=== PATIENT | female | born 1955 | race Caucasian/White ===

== ENCOUNTER 2016-09-07 08:46 | Day surgery (SDC) | payer BC ==
[~2016-09-07] VITALS: Ht 175.3 cm; Wt 97.3 kg
[2016-09-07] VITALS (8 sets, daily range): BP systolic 133–180; BP diastolic 72–82; PULSE 60–67; RESP 14–21; TEMP 97.5–98.2; O2SAT 94–98; Ht 175.3 cm; Wt 97.3 kg
[~2016-09-07 08:46] MED LIST: CLINDAMYCIN 600mg IVPB 50 ML IV ONE; LIDOCAINE 1% (10mg/ml) 2ml SDV INJ ONE; LR 1,000 ML IV PRN; METF500T4 PO; NEBI10TA PO; OMEP20CA10 PO; ROSU20TA23 PO
--- OUTSIDE RECORDS SUMMARY | 2016-09-07 08:49 | XMS REPORT | Continuity of Care Document ---
Author Author [facility] Address Unknown Phone Unavailable Allergies Active Description Code Type Severity Reaction Onset Reported/Identified Relationship to Patient Clinical Status Yes Penicillins [id number] Drug Allergy Unknown N/A 04/01/2016 Medications Problems Date Dx Coded Attending Type Code Diagnosis Diagnosed By 05/12/2015 LAURIE ROBERTS MD, Ot Z12.31 11/06/2015 LAURIE ROBERTS MD, Ot E11.65 TYPE 2 DIABETES MELLITUS WITH HYPERGLYCE 11/18/2015 LAURIE ROBERTS MD Ot E11.65 TYPE 2 DIABETES MELLITUS WITH HYPERGLYCE 11/18/2015 LAURIE ROBERTS MD, Ot E11.65 TYPE 2 DIABETES MELLITUS WITH HYPERGLYCE 01/26/2016 LAURIE ROBERTS MD, Ot E11.65 TYPE 2 DIABETES MELLITUS WITH HYPERGLYCE 01/27/2016 LAURIE ROBERTS MD Ot E11.65 TYPE 2 DIABETES MELLITUS WITH HYPERGLYCE 02/08/2016 LAURIE ROBERTS MD, Ot E11.65 TYPE 2 DIABETES MELLITUS WITH HYPERGLYCE 02/10/2016 LAURIE ROBERTS MD, Ot E11.65 TYPE 2 DIABETES MELLITUS WITH HYPERGLYCE 03/22/2016 Ot V76.12 OTH SCREEN MAMMO-MALIGN NEOPLASM OF [place] 03/22/2016 LAURIE ROBERTS MD Ot V16.3 FAMILY HX-BREAST MALIG 03/22/2016 LAURIE ROBERTS MD, Ot V76.11 SCRN MAMMO-HIGH RISK PT, MALIGNANT NEOPL 03/22/2016 LAURIE ROBERTS MD Ot 729.82 CRAMP IN LIMB 03/22/2016 LAURIE ROBERTS MD Ot 611.89 OTHER SPECIFIED DISORDERS OF BREAST 03/22/2016 LAURIE ROBERTS MD Ot 793.82 INCONCLUSIVE MAMMOGRAM 03/22/2016 LAURIE ROBERTS MD, Ot V76.12 OTH SCREEN MAMMO-MALIGN NEOPLASM OF [place] 03/22/2016 LAURIE ROBERTS MD Ot Z12.31 ENCNTR SCREEN MAMMOGRAM FOR MALIGNANT NE 03/22/2016 ALEJANDRA MD, LAURIE L Ot E11.65 TYPE 2 DIABETES MELLITUS WITH HYPERGLYCE 03/30/2016 All Gomez Ot M25.561 PAIN IN RIGHT KNEE 04/01/2016 LAURIE ROBERTS MD, Ot E11.65 TYPE 2 DIABETES MELLITUS WITH HYPERGLYCE 04/01/2016 HERBERT ARECHIGA MD P Ot S81.812A LACERATION WITHOUT FOREIGN BODY, LEFT LO 04/01/2016 HERBERT ARECHIGA MD P Ot W22.03XA WALKED INTO FURNITURE, INITIAL ENCOUNTER 04/01/2016 HERBERT ARECHIGA MD P Ot Y92.[address] IN [facility] NON-INSTITUT ( PRIVATE 04/05/2016 HERBERT ARECHIGA MD P Ot S81.812A LACERATION WITHOUT FOREIGN BODY, LEFT LO 04/05/2016 HERBERT ARECHIGA MD P Ot W22.03XA WALKED INTO FURNITURE, INITIAL ENCOUNTER 04/05/2016 HERBERT ARECHIGA MD P Ot Y92.[address] IN [facility] NON-INSTIT[facility] ( PRIVATE 04/05/2016 HERBERT ARECHIGA MD P Ot S81.812A LACERATION WITHOUT FOREIGN BODY, LEFT LO 04/05/2016 HERBERT ARECHIGA MD P Ot W22.03XA WALKED INTO FURNITURE, INITIAL ENCOUNTER 04/05/2016 HERBERT ARECHIGA MD P Ot Y92.[address] IN [facility] NON-INSTIT[facility] ( PRIVATE 05/09/2016 LAURIE ROBERTS MD Ot Z12.31 ENCNTR SCREEN MAMMOGRAM FOR MALIGNANT NE 05/18/2016 LAURIE ROBERTS MD, Ot Z12.31 ENCNTR SCREEN MAMMOGRAM FOR MALIGNANT NE 08/31/2016 LAURIE ROBERTS MD Ot R01.1 CARDIAC MURMUR, UNSPECIFIED Procedures Results Encounters ACCT No. Visit Date/Time Discharge Status Pt. Type Provider Facility Loc./Unit Complaint [id number] 04/01/2016 09:44:00 2015 10:30:00 DIS Emergency GENI DOWNS, [facility] ED [id number] 11/18/2015 10:00:00 2015 00:01:00 DIS Outpatient ALEJANDRA DOWNS, LAURIE [facility] DT TYPE 2 DIABETES E11.65 [id number] 01/01/2014 07:22:00 2013 23:59:59 CLS Outpatient ALEJANDRA DOWNS, [facility] RAD SCREEING V7612 [id number] 12/25/2012 10:56:00 2012 23:59:59 CLS Outpatient ALEJANDRA DOWNS, [facility] RAD Asymmetry Rt Breast [id number] 12/19/2012 13:49:00 2012 23:59:59 CLS Outpatient ALEJANDRA DOWNS, [facility] RAD BILAT LEG CRAMPS WITH COLD EXTREMITIES [id number] 12/13/2012 07:23:00 2012 23:59:59 CLS Outpatient ALEJANDRA DOWNS, [facility] RAD SCREENING V7612 [id number] 09/02/2016 13:51:00 PEN Preadmit [facility] RT EKG [id number] 08/23/2016 14:11:00 ACT Outpatient ALEJANDRA DOWNS, [facility] RAD SYSTOLIC MURMUR R01.1 [id number] 05/03/2016 07:56:00 ACT Outpatient ALEJANDRA DOWNS, [facility] RAD MAMMO SCREENING - Z12.31 [id number] 03/22/2016 12:04:00 ACT Outpatient All Gomez [facility] RAD R KNEE PAIN [id number] 01/27/2016 09:00:00 PEN Preadmit ALEJANDRA DOWNS, [facility] DT TYPE 2 DIABETES E11.65 [id number] 04/28/2015 13:26:00 ACT Outpatient ALEJANDRA DOWNS, [facility] RAD MAMMO SCREENING - Z12.31 [id number] 12/12/2011 08:26:00 Document Registration
--- OUTSIDE RECORDS SUMMARY | 2016-09-07 08:49 | XMS REPORT | Summary of Care ---
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 * Started 21-Dec-2009 ActiveLidocaine 5 % External Ointment Apply to area 45 min prior to laser treatment * Quantity: 35.44 GM Refills: 5 * Started 27-Aug-2013 Active Allergies and Adverse Reactions Name Dates Details Penicillins Status: Active Past Medical History Name Dates Details Skin Cancer (V10.83) Status: Resolved Inflamed seborrheic keratosis (702.11, L82.0) Status: Resolved Procedures Procedure Dates Details Neck Surgery Procedures not documented Immunization Name Dates Details Immunizations not documented Social History Name Dates Details Never smoker Smoking Status* Never smoker Vital Signs Date Test Result Details No Known Vitals to report Results Date Description Value Details Results not documented Plan of Care Instructions* Instructions not documented Planned Observations* Name Dates Details Planned Goals not documented Goal Planned Encounters* Appointment; Provider: Ronni Craig On 01-Sep-2014 16:00 * Appointment; Provider: Sariah Lauren On 04-Oct-2013 08:30 * Appointment; Provider: Sariah Lauren On 04-Oct-2013 08:30 * Appointment; Provider: Nickolas Stratton On 02-Oct-2013 15:15 * Appointment; Provider: Nickolas Stratton On 11:00 Instructions * No Known Instructions Encounters Appointment; Sariah Lauren Encounter Diagnosis: Problem not documented On 27-Aug-2013 15:00 Appointment; Gerardo Bernard Encounter Diagnosis: Problem not documented On 19-Jun-2013 08:45 Appointment; Nickolas Stratton Encounter Diagnosis: Problem not documented On 09-Jan-2013 13:00 Appointment; Sariah Lauren Encounter Diagnosis: Problem not documented On 13-Aug-2012 16:15
--- OUTSIDE RECORDS SUMMARY | 2016-09-07 08:49 | XMS REPORT | Referral Summary ---
Author Author [facility] Organization [facility] Address Unknown Phone Unavailable Care Team Providers Care Medication Reconciliation Technician Name Role Phone ArmidaGrey Primary Care Physician [phone] Encounter [facility] Date(s): 10/14/14 - 10/14/14 [facility] [address], [place] [address] Final: PREOPERATIVE EXAMINATION, UNSPECIFIED Final: OSTEOARTHROSIS, LOCALIZED, NOT SPECIFIED WHETHER PRIMARY OR SECONDARY, INVOLVING LOWER LEG Discharge Disposition: 01-Home or Self Care Attending Physician: Jai Rose II, MD Vital Signs No data available for this section Problem List Condition Effective Dates Status Health Status Informant Acute Active pain(Confirmed) At risk for activity Active intolerance(Confirme d)1 At risk for Active infection(Confirmed) 2 Hyperlipemia(Confirm Active patient ed) HTN Active patient (hypertension)(Confi rmed) Impaired skin Active integrity(Confirmed) 3 Obesity(Confirmed) Active patient 1Problem added automatically by system based on initiation of At Risk for Activity Intolerance Plan of Care 2Problem added automatically by system based on initiation of At Risk for Infection in Nutrition Plan of Care 3Problem added automatically by system based on initiation of Impaired Skin Integrity Plan of Care Allergies, Adverse Reactions, Alerts Substance Reaction Severity Status penicillin unknown Active Medications acetaminophen 325 mg oral tablet 325 mg 1 tabs, Oral, q4hr, Pain Mild (1-3), 0 Refill(s) Start Date: 10/23/14 Status: Ordered aspirin 81 mg oral delayed release tablet 81 mg 1 tabs, Oral, BID, 0 Refill(s) Start Date: 10/23/14 Status: Ordered atorvastatin 80 mg oral tablet 80 mg 1 tabs, Oral, Bedtime (once a day), 0 Refill(s) Start Date: 10/23/14 Status: Ordered Benicar 20 mg, Oral, Daily, 0 Refill(s) Start Date: 10/14/14 Status: Ordered bisoprolol-hydrochlorothiazide 2.5 mg-6.25 mg oral tablet 1 tabs, Oral, Daily, 0 Refill(s) Start Date: 10/22/14 Status: Ordered Crestor 20 mg, Oral, Daily, 0 Refill(s) Start Date: 10/14/14 Status: Ordered hydrochlorothiazide 25 mg, Oral, Daily Start Date: 10/14/14 Status: Ordered HYDROcodone-acetaminophen 10 mg-325 mg oral tablet 2 tabs, Oral, q4hr, Pain Severe (7-10), 0 Refill(s) Start Date: 10/23/14 Status: Ordered omeprazole 20 mg, Oral, Daily, 0 Refill(s) Start Date: 10/14/14 Status: Ordered Prempro 0.625-2.5mg, Oral, Daily Start Date: 10/14/14 Status: Ordered traMADol 50 mg oral tablet 50 mg 1 tabs, Oral, q4hr, Pain Mild (1-3), 0 Refill(s) Start Date: 10/23/14 Status: Ordered venlafaxine 37.5 mg, Oral, Daily Start Date: 10/14/14 Status: Ordered Results No data available for this section Immunizations No data available for this section Procedures Procedure Date Related Diagnosis Body Site Arthroplasty Knee Total Replacement (Left)1 10/21/14 1auto-populated from documented surgical case Social History Social History Type Response Smoking Status Never smoker Assessment and Plan No data available for this section
--- OUTSIDE RECORDS SUMMARY | 2016-09-07 08:49 | XMS REPORT | Summary of Care ---
Author Author Rakesh Zarate Organization Unknown Address [address], [place] [id number] Phone Unavailable Care Team Providers Care Geophysical Drafter Name Role Phone Rakesh Zarate Unavailable Unavailable Yahaira Prakash M.D. 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 Alberto Prakash M.D.* Started 21-Dec-2009 ActiveAzithromycin 250 MG Oral Tablet TAKE 2 TABLETS ON DAY 1 THEN TAKE 1 TABLET A DAY FOR 4 DAYS. * Quantity: 2 Refills: 0 Rakesh Prakash* Started 28-Apr-2014 Active6 Tablet Disp Pack MethylPREDNISolone Acetate 80 MG/ML Injection Suspension 1 ml given in office * Quantity: 1 Refills: 0 Rakesh Prakash* Started 28-Apr-2014 Admin RequestedLidocaine 5 % External Ointment Apply to area 45 min prior to laser treatment * Quantity: 35.44 Refills: 5 Sariah Lauren M.D.* Started 27-Aug-2013 Active Allergies and Adverse Reactions Name Dates Details Penicillins Status: Active Past Medical History Name Dates Details History of Inflamed seborrheic keratosis (702.11, L82.0) Status: Resolved History of Skin Cancer (V10.83) Status: Resolved Procedures Procedure Dates Details History of Neck Surgery Procedures not documented Immunization Name Dates Details Immunizations not documented Social History Name Dates Details Smoking Status* Never smoker Vital Signs Date Test Result Details 28-Apr-2014 09:52 BP Systolic 112 mm[Hg] Status: BP Diastolic 74 mm[Hg] Status: Heart Rate 111 /min Status: Temperature 99.6 f Status: Weight 224 lb Status: O2 SAT 97 % Status: Results Date Description Value Details 22-Apr-2014 16:41 ULTRASOUND ELVS Comments: Exam Date: 12: 19Dictation Date: 16:41 XS ELVS (Better) 05-May-2014 16:19 ULTRASOUND ELVS RECHECK LEFT Comments: Exam Date: 14:48Dictation Date: 16:19 XS ELVS RECHECK LEFT (Better) 20-May-2014 14:24 ULTRASOUND ELVS Comments: Exam Date: 12: 18Dictation Date: 14:24 XS ELVS (Better) 13:56 ULTRASOUND ELVS RECHECK LEFT Comments: Exam Date: 12: 17Dictation Date: 13:56 XS ELVS RECHECK LEFT (Better) Plan of Care Planned Observations* Name Dates Details Planned Goals not documented Goal Planned Encounters* Appointment; Provider: Ronni Craig On 01-Sep-2014 16:00 * Appointment; Provider: Nickolas Stratton On 11:00 Instructions * Instructions not documented Encounters Appointment; Rakesh Prakash Encounter Diagnosis: Problem not documented On 28-Apr-2014 09:50 Appointment; Sariah Lauren Encounter Diagnosis: Problem not documented On 14-Mar-2014 16:00 Appointment; Sariah Lauren Encounter Diagnosis: Problem not documented On 07-Feb-2014 16:00 Appointment; Sariah Lauren Encounter Diagnosis: Problem not documented On 07-Feb-2014 16:00 Appointment; Sariah Lauren Encounter Diagnosis: Problem not documented On 03-Jan-2014 16:00 Appointment; Sariah Lauren Encounter Diagnosis: Problem not documented On 03-Jan-2014 16:00 Appointment; Sariah Lauren Encounter Diagnosis: Problem not documented On 08:30 Appointment; Sariah Lauren Encounter Diagnosis: Problem not documented On 08:30 Appointment; Sariah Lauren Encounter Diagnosis: Problem not documented On 04-Oct-2013 08:30 Appointment; Sariah Lauren Encounter Diagnosis: Problem not documented On 04-Oct-2013 08:30 Appointment; Nickolas Stratton Encounter Diagnosis: Problem not documented On 02-Oct-2013 15:15 Appointment; Sariah Lauren Encounter Diagnosis: Problem not documented On 27-Aug-2013 15:00 Appointment; Gerardo Bernard Encounter Diagnosis: Problem not documented On 19-Jun-2013 08:45 Appointment; Nickolas Stratton Encounter Diagnosis: Problem not documented On 09-Jan-2013 13:00 Appointment; Sariah Lauren Encounter Diagnosis: Problem not documented On 13-Aug-2012 16:15
--- OUTSIDE RECORDS SUMMARY | 2016-09-07 08:50 | XMS REPORT | Summary of Care ---
Author Author Nette Nugent Unknown Address [address], [place] [id number] Phone Unavailable Care Team Providers Care Sap Fico Architect Name Role Phone Rakesh Zarate Unavailable Unavailable Olinda Nieto, Yahaira Unavailable Unavailable Xin Nieto, Grey Unavailable Unavailable Juan Huffman PP Unavailable Unavailable Unavailable Functional Status Functional Status [...] Upper respiratory infection (465.9, J06.9) Status: Active Actinic keratosis (702.0, L57.0) Status: Active Seborrheic keratosis (702.19, L82.1) Status: Active Lentigo (709.09, L81.4) Status: Active Inflamed seborrheic keratosis (702.11, L82.0) Status: Active History of skin cancer (V10.83, Z85.828) Status: Active Medications Name Dates Details Benicar 20 MG Oral Tablet TAKE 1 TABLET DAILY. Alberto Prakash M.D.* Started 21-Dec-2009 ActiveLidocaine 5 % External Ointment Apply to area 45 min prior to laser treatment * Quantity: 35.44 Refills: 5 Sariah Lauren M.D.* Started 27-Aug-2013 ActiveAzithromycin 250 MG Oral Tablet TAKE 2 TABLETS ON DAY 1 THEN TAKE 1 TABLET A DAY FOR 4 DAYS. * Quantity: 2 Refills: 0 Rakesh Prakash* Started 28-Apr-2014 Active6 Tablet Disp Pack MethylPREDNISolone Acetate 80 MG/ML Injection Suspension 1 ml given in office * Quantity: 1 Refills: 0 Rakesh Prakash* Started 28-Apr-2014 Admin Requested Allergies and Adverse Reactions Name Dates Details Penicillins Status: Active Past Medical History Name Dates Details History of Skin Cancer (V10.83) Status: Resolved Procedures Procedure Dates Details History of Neck Surgery Procedures not documented Immunization Name Dates Details Immunizations not documented Social History Name Dates Details Smoking Status* Never smoker Vital Signs Date Test Result Details No Known Vitals to report Results Date Description Value Details Results not documented Plan of Care Planned Observations* Name Dates Details Planned Goals not documented Goal Planned Encounters* Appointment; Provider: Nette Be On 14:45 * Appointment; Provider: Nickolas Stratton On 11:00 Instructions * Instructions not documented Encounters Appointment; Nette Be Encounter Diagnosis: Problem not documented On 14:45 Appointment; Ronni Craig Encounter Diagnosis: Problem not documented On 04-Feb-2015 09:15 Appointment; Ronni Craig Encounter Diagnosis: Problem not documented On 01-Sep-2014 16:00 Appointment; Rakesh Prakash Encounter Diagnosis: Problem not [...]
--- OUTSIDE RECORDS SUMMARY | 2016-09-07 08:50 | XMS REPORT | Referral Summary ---
Author Author [facility] Organization [facility] Address Unknown Phone Unavailable Care Team Providers Care Director Day Care Center Name Role Phone Armida Grey Primary Care Physician [phone] Encounter [facility] [id number] Date(s): 05/18/15 - 05/18/15 [facility] [address] [place] [address] Discharge Disposition: 01-Home or Self Care Attending [...] Daily Start Date: 10/14/14 Status: Ordered Results Microbiology Reports TEST: Fluid Culture and Smear STATUS: Order in Progress BODY SITE: SOURCE: Synovial Fluid COLLECTED DATE/TIME: 05/18/15 11:30 AM Gram Smear Few (1-5/OIF) white blood cells Innumerable (>50/OIF) red blood cells No microorganisms observed Immunizations No data available for this section Procedures Procedure Date Related Diagnosis Body Site Image-guided fluid collection drainage by 05/18/15 catheter (eg, abscess, hematoma, seroma, lymphocele, cyst); visceral (eg, kidney, liver, spleen, lung/mediastinum), percutaneous Puncture aspiration of abscess, hematoma, 05/18/15 bulla, or cyst Arthroplasty Knee Total Replacement (Left)1 10/21/14 1auto-populated from documented surgical case Social History Social History Type Response Smoking Status Never smoker Assessment and Plan No data available for this section
--- OUTSIDE RECORDS SUMMARY | 2016-09-07 08:50 | XMS REPORT | Summary of Care ---
Author Author Nette Nugent Unknown Address [address], [place] [id number] Phone Unavailable Care Team Providers Care Hotel Attendant Name Role Phone Rakesh Zarate Unavailable Unavailable [...]
--- OUTSIDE RECORDS SUMMARY | 2016-09-07 08:50 | XMS REPORT | Referral Summary ---
Author Author [facility] Organization [facility] Address Unknown Phone Unavailable Care Team Providers Care Lease Analyst Name Role Phone ArmidaGrey Primary Care Physician [phone] Encounter [facility] [id number] Date(s): 10/21/14 - 10/23/14 [facility] [address] [place] [address] QG [phone] Final: OSTEOARTHROSIS, LOCALIZED, NOT SPECIFIED WHETHER PRIMARY OR SECONDARY, INVOLVING LOWER LEG Final: HYPOSMOLALITY AND/OR HYPONATREMIA Final: ACUTE POSTHEMORRHAGIC ANEMIA Final: DEPRESSIVE DISORDER, NOT ELSEWHERE CLASSIFIED Final: OTHER AND UNSPECIFIED HYPERLIPIDEMIA Final: UNSPECIFIED ESSENTIAL HYPERTENSION Final: ESOPHAGEAL REFLUX Final: OBESITY, UNSPECIFIED Final: Other abnormal glucose Final: Body Mass Index 33.0-33.9, adult Discharge Disposition: 01-Home or Self Care Attending Physician: Jai Rose II, MD Admitting Physician: Jai Rose II, MD Vital Signs Most recent to 1 oldest [Reference Range]: Temperature Oral 36.6 degC [35.8-37.3 degC] (10/23/14 11:00 AM) Temperature Tympanic 36.4 degC [36.6-38.1 degC] *LOW* (10/21/14 8:03 AM) Temperature Skin 37.2 degC [36-37 degC] *HI* (10/21/14 11:30 AM) Peripheral Pulse 91 bpm Rate [60-100 bpm] (10/23/14 11:00 AM) Heart Rate Monitored 65 bpm [60-100 bpm] (10/21/14 11:45 AM) Respiratory Rate 18 br/min [14-20 br/min] (10/23/14 11:00 AM) Blood Pressure 122/62 mmHg [90-140/60-90 mmHg] (10/23/14 11:00 AM) Mean Arterial 119 mmHg Pressure, Cuff (10/21/14 11:45 AM) SpO2 93 % (10/23/14 11:00 AM) Problem List Condition Effective Dates Status Health [...] Daily Start Date: 10/14/14 Status: Ordered Results Hematology Most recent to 1 oldest [Reference Range]: WBC [4.8-10.8 7.7 10*3/uL 10*3/uL] (10/23/14 5:29 AM) RBC [4.00-5.20 3.23 10*6/uL 10*6/uL] *LOW* (10/23/14 5:29 AM) Hgb [12.0-16.0 9.7 gm/dL gm/dL] *LOW* (10/23/14 5:29 AM) Hct [37.0-47.0 %] 30.0 % *LOW* (10/23/14 5:29 AM) MCV [82.0-99.0 fL] 92.9 fL (10/23/14 5:29 AM) MCH [27.0-32.0 pg] 30.0 pg (10/23/14 5:29 AM) MCHC [32.0-36.0 32.3 gm/dL gm/dL] (10/23/14 5:29 AM) RDW [11.5-14.5 %] 13.9 % (10/23/14 5:29 AM) Platelet [150-400 218 10*3/uL 10*3/uL] (10/23/14 5:29 AM) MPV [9.4-12.4 fL] 11.0 fL (10/23/14 5:29 AM) Chemistry Most recent to 1 oldest [Reference Range]: Sodium Lvl [136-144 134 mEq/L mEq/L] *LOW* (10/23/14 5:29 AM) Potassium Lvl 3.7 mEq/L [3.6-5.1 mEq/L] (10/23/14 5:29 AM) Chloride [99-109 99 mEq/L mEq/L] (10/23/14 5:29 AM) CO2 [22-32 mEq/L] 29 mEq/L (10/23/14 5:29 AM) AGAP [3-20] 6 (6/18/15 5:29 AM) BUN [4-20 mg/dL] 10 mg/dL (10/23/14 5:29 AM) Glucose Lvl [70-100 152 mg/dL mg/dL] *HI* (10/23/14 5:29 AM) Creatinine Lvl 0.80 mg/dL [0.44-1.03 mg/dL] (10/23/14 5:29 AM) eGFR [>60] >60 1 (10/23/14 5:29 AM) Calcium Lvl 8.8 mg/dL [8.6-10.0 mg/dL] (10/23/14 5:29 AM) Blood Glucose, 133 mg/dL Capillary [70-100 *HI* mg/dL] (10/23/14 11:31 AM) Hgb A1c [4.1-5.6 %] 6.4 % *HI* (10/23/14 5:29 AM) eAvg Glucose 137.0 mg/dL (10/23/14 5:29 AM) 1Result Comment: Multiply eGFR results by 1.21 for race. Immunizations No data available for this section Procedures Procedure Date Related Diagnosis Body Site Arthroplasty Knee Total Replacement (Left)1 10/21/14 1auto-populated from documented surgical case Social History Social History Type Response Smoking Status Never smoker Assessment and Plan No data available for this section
--- OUTSIDE RECORDS SUMMARY | 2016-09-07 08:50 | XMS REPORT | Continuity of Care Document ---
Author Author [facility] Address Unknown Phone Unavailable Care Team Providers Care Community Resource Officer Name Role Phone LAURIE ROBERTS MD Primary Care Physician [phone] Insurance Providers Payer Name Policy Number Subscriber Name Relationship [facility] [id number] Mila Michaud 18 Self / Same As Patient Advance Directives Directive Response Recorded Date/Time Advanced Directives Yes 04/01/16 9:47am Type Durable Power of Park Activities Coordinator 04/01/16 9:47am Chief Complaint and Reason for Visit Chief Complaint Laceration Reason for Visit Laceration Problems Active Problems Medical Problem Onset Date Status Laceration Unknown Acute Medications Current Home Medications Medication Dose Units Route Directions Days/Qty Instructions Start Date Rosuvastatin Calcium 20 Mg 20 ORAL Daily 30 04/01/16 Sulfamethoxazole/Trimethoprim 1 Each 1 Tab ORAL Twice A Day 10 Social History Query Response Start Date Stop Date Smoking Status Never smoker Hospital Discharge Instructions No hospital discharge instructions. Plan of Care Discharge Date 04/01/16 10:30am Disposition 01 HOME OR SELF-CARE Condition at Discharge Stable Instructions/Education Provided Laceration (ED) Prescriptions See Medication Section Referrals LAURIE ROBERTS MD - Additional Instructions/Education ED INGRID if any sign of infection. Routine wound care. Keflex as directed. Some of your test results may not be complete prior to your leaving the Emergency Department. The Emergency Department is not authorized to give test results over the phone. Please contact the doctor's office listed in this packet of information for your final results. Follow up with your primary care physician or return to the Emergency Department for worsening or worrisome symptoms. * Emergency Department phone number: [phone], x [phone]* MEDICAL RECORD If you need copies of your X-rays, call [phone]. If you need copies of your medical record, including lab results, a signed authorization for release of records will be required. A telephone call for release of Health Information is not allowed. BILLING Billing can sometimes be confusing and frustrating. To help avoid confusion in the future, please take a moment to acquaint yourself with the billing parties for services. SERVICE BILLING [facility] Emergency Room Services [facility] Physician Services [facility] X-rays [place] [facility] Patients will receive bills for services from the appropriate provider. If you have any questions about your [facility] bill, our staff will be happy to assist you. Please call [phone], and ask for the billing department. THANK YOU for choosing [facility] as your emergency care provider! Care Plan and Goals ~~Discharge Care Plan~~ Problem: Laceration repaired Goal: Wound is closed with edges lined up, and will heal without redness, drainage or signs of infection. Instructions: Keep wound clean and dry. Apply antibiotic ointment as directed. Follow physician discharge instructions. Keep wound covered if working in an unclean environment. Wear gloves if working with food in a work environment. Functional Status No functional status results. Allergies, Adverse Reactions, Alerts Allergen Type Severity Reaction Status Last Updated Penicillin Allergy Unknown Active 04/01/16 Immunizations Name Given Type Status Tdap 04/01/16 Administered Completed Vital Signs Acute Vital Signs Vital Response Date/Time Temperature (Fahrenheit) 98.1 04/01/2016 9:47am Pulse 87 bpm 04/01/2016 9:47am Respirations 16 04/01/2016 9:47am Height 5 ft 9 in Weight 202 lb Body Mass Index 29.0 kg/m^2 Results No known relevant diagnostic tests, laboratory data and/or discharge summary. Procedures Procedure Status Date Provider(s) MRI JNT OF LWR SAWYER W/O DYE Completed 03/22/16 Encounters Encounter Location Arrival/Admit Date Discharge/Depart Date Attending Provider Departed Emergency Room [facility] 04/01/16 9:44am 04/01/16 10:30am HERBERT ARECHIGA MD Registered Clinic [facility] 03/22/16 12:04pm All Gomez Recent Diagnosis
[2016-09-07] MEDS ORDERED: MAGN400T6 PO (09:12)
[2016-09-07] MEDS ORDERED: VIT B12 AEROSOL (09:13)
[2016-09-07] MEDS ORDERED: POTASSIUM (09:16)
[2016-09-07 09:38] LABS: ANION GAP 11 MEQ/L (5-15); BUN/CREATININE RATIO 21 RATIO (6-26); CALCIUM 9.2 MG/DL (8.4-10.2); CHLORIDE 108 MEQ/L (98-107); CO2 - CARBON DIOXIDE 28 MEQ/L (22-30); CREATININE 0.8 MG/DL (0.7-1.2); GLOMERULAR FILTRATION RATE 73; GLUCOSE 119 MG/DL (65-110); POTASSIUM 4.3 MEQ/L (3.6-5); SODIUM 147 MEQ/L (134-144)
[2016-09-07] MEDS ORDERED: BUPIVACAINE 0.25% (2.5mg/ml) INJ 30ml SDV ONE (10:50)
[2016-09-07] MEDS ORDERED: MEPERIDINE 100 mg/ml VIAL ONE (10:50)
[2016-09-07] MEDS ORDERED: PROPOFOL 500mg 100 ML IV ONE (11:09)
--- NOTE | 2016-09-07 11:29 | ANESPREOP ---
Anesthesia Record Date and Time DATE: 09/07/16 TIME: 11:28 Pre-Op Diagnosis Meniscus tear Proposed Surgical Procedure R. KNEE ARTHROSCOPY/PMM/BOONE NPO since: Midnight Allergies: Coded Allergies: Penicillins (Verified Allergy, Unknown, 09/07/16) Ht/Wt/BMI Height: 5 ' 9.00 " Weight: 97.300 kg BMI: 31.7 kg/m2 Vital Signs Date Time Temp Pulse Resp B/P Pulse Ox O2 Delivery O2 Flow Rate FiO2 09/07/16 08:59 98.2 67 16 165/78 97 Room Air Medications Inpatient Medications Current Medications Medications (Trade) Dose Ordered Sig/Louisa Start Time Stop Time Status Last Admin Dose Admin Lactated Ringer's (Lactated Ringers) 1,000 ml @ 50 mls/hr Q20H PRN 09/07/16 07:00 09/07/16 10:02 50 MLS/HR Magnesium Oxide (Magnesium Oxide) 400 Mg Tablet, 1 TAB PO DAILY, (Reported) Last Taken: on 09/06/16 2200 Metformin HCl (Metformin HCl) 500 Mg Tablet, 2 TAB PO BID, (Reported) Last Taken: on 09/06/16 2100 Nebivolol HCl (Bystolic) 10 Mg Tablet, 1 TAB PO DAILY, (Reported) Last Taken: on 09/07/16 0530 Omeprazole (Omeprazole) 20 Mg Capsule.dr, 1 TAB PO DAILY, (Reported) Last Taken: on 09/06/16 0530 Rosuvastatin Calcium (Rosuvastatin Calcium) 20 Mg Tablet, 1 TAB PO DAILY, (Reported) Last Taken: on 09/06/16 2200 [Potassium] , DAILY, (Reported) Last Taken: on 09/06/16 0530 [Vit B12] , AEROSOL DAILY, (Reported) Last Taken: on 09/06/16 0530 Currently on Beta Sultana: Yes Beta Sultana Last Taken: 09/07/16 0530 Medical/Surgical History Anesthesia PMH: Reports: *Diabetes (TYPE 2 PER H&P), *Hypertension (CONTROLLED WITH MEDS), Anesthesia Reactions (NO AIRWAY ISSUES, N&V), Cancer (SQUAMOUS CELL RIGHT SIDE NECK), Reflux, Thyroid Disease, Valvular Disease (Dr Wilson), Denies : Arthritis, Clotting Problems, Glaucoma, Malignant Hyperthermia, Sleep Apnea Smoking Status: Never smoker Has pt. smoked today?: No Use Chewing Tobacco?: No Second Hand Exposure: No Substance Use Type: does not use Alcohol Intake: none HX of Last Menstrual Period: AGE 50 Past Surgical History Orthopedic Surgeries: Yes - TKR-LEFT, ARTHROSCOPY LEFT KNEE, ELBOW& FOREARM REPAIR Abdominal Surgeries: Genitourinary Surgeries: Cardiac Surgeries: Endocrine Surgeries: Reproductive Surgeries: Yes - D&C Neurological Surgeries: Ear Surgeries: Nose Surgeries: Throat Surgeries: Other Surgeries: Yes - DETATCHED RETNIA Anesthesia Adverse Reactions: FOUND none Family Hx of Anesthesia Advers: none Hx of Motion Sickness: No Pertinent Findings Laboratory Tests 09/07/16 09:18 EKG Rhythm: Sinus Rhythm Physical Exam Respiratory: Lungs clear Cardiovascular: FOUND Regular rate, rhythm Airway Assessment Mallampati Score: II TMD: 3 Fingerbreadths Neck Extension: Good Overall Assessment: No Airway Concerns ASA: 2 Plan Anesthesia Plan: TIVA, LMA Discussion Discussed risks/options/alternatives of anesthesia and questions answered. Patient consents. Nursing pain assessment noted. Present: Family Member Attestation Statement Prior to the delivery of any anesthetic medication, I examined the patient, developed the plan, obtained the patient's consent and discussed the risk and benefits of the procedure with the patient/guardian. GIANFRANCO CUEVAS WALLPAPER INSPECTOR September 07, 2016 11:29
[2016-09-07] MEDS ORDERED: FENTANYL 100mcg/2ml INJECTION ONE (11:36)
[2016-09-07] MEDS ORDERED: ONDANSETRON 4mg/2ml INJECTION ONE (11:54)
[2016-09-07] MEDS ORDERED: KETOROLAC 30mg/ml INJECTION ONE (11:55)
[2016-09-07] MEDS ORDERED: DEXAMETHASONE 4mg/ml - 1ml INJECTION ONE (11:55)
[2016-09-07] MEDS ORDERED: PROPOFOL 500mg 50 ML IV ONE (11:55)
[2016-09-07] MEDS ORDERED: HYDROMORPHONE 2mg/ml INJECTION IV PRN (12:15)
[2016-09-07] MEDS ORDERED: METOCLOPRAMIDE 10mg/2ml INJECTION IV PRN (12:15)
[2016-09-07] MEDS ORDERED: ONDANSETRON 4mg/2ml INJECTION IV PRN (12:15)
[2016-09-07] MEDS ORDERED: HYDR-4246 PO (12:23)
[2016-09-07] MEDS ORDERED: MELO7.5T12 PO (12:23)
[2016-09-07] MEDS ORDERED: ONDA4TAB4 PO (12:23)
--- NOTE | 2016-09-07 12:25 | PDPROCED ---
Immediate Operative Note DATE: 09/07/16 TIME: 12:24 Preop Diagnosis: RIGHT KNEE MMT, PRIMARY OA Postop Diagnosis: Right knee medial and lateral meniscal tear, primary OA Surgical Procedures: R Knee Arthroscopy (PMM, PLM, chondroplasty MFC and patella, limited synovectomy) Surgeon: [facility] Coordinator: BARBARA Gonsalez Anesthesia: General Complications: none Estimated Blood Loss see anesthesia JANN ACUÑA September 07, 2016 12:25
--- NOTE | 2016-09-07 12:30 | ANESPO ---
Post-Op Note Date 09/07/16 Time: 12:29 Status Pt Participated in Evaluation: Pt participated in person Vital Signs Date Time Temp Pulse Resp B/P Pulse Ox O2 Delivery O2 Flow Rate FiO2 09/07/16 08:59 98.2 67 16 165/78 97 Room Air Respiratory Function: Airway patent Cardiovascular Function: Regular pulse Telemetry Pattern: SR Mental Status: Alert/oriented Pain Level Intensity: 0 Hydration: IV infusing Complications during Recovery None apparent Follow-Up Instructions Instructions Per Surgeon GIANFRANCO CUEVAS CRNA September 07, 2016 12:30
[2016-09-07] MEDS ORDERED: HYDROCODONE/APAP 5 mg/325 mg TABLET PO PRN (13:00)
--- NOTE | 2016-09-07 19:33 | OPNOTEF ---
DATE OF SURGERY 09/07/2016 PREOPERATIVE DIAGNOSES 1. Right knee posterior horn medial meniscus tear with mechanical symptoms. 2. Right knee medial and patellofemoral compartment osteoarthritis. POSTOPERATIVE DIAGNOSES 1. Right knee posterior horn medial meniscus tear with displaced fragment into intercondylar notch and medial gutter. 2. 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 3. Right knee grade 3 chondromalacia patellofemoral joint. 4. Right knee posterior horn and body lateral meniscus tear. PROCEDURE 1. Right knee arthroscopic partial medial and partial lateral meniscectomies. 2. Right knee arthroscopic shaving chondroplasty medial femoral condyle, patella and femoral trochlea. SURGEON All Gomez MD DIRECTOR AIRPORT Canelo De La Rosa PA-C ANESTHESIA General. FLUIDS Please refer to Anesthesia chart EBL Minimal. TOURNIQUET Please refer to Anesthesia chart. COMPLICATIONS None. CONDITION Stable in recovery room. DESCRIPTION OF PROCEDURE The patient was identified in the preoperative holding area. The operative extremity was identified and appropriately marked. Risks, benefits, alternatives and potential complications were discussed and informed consent was obtained. The patient was taken to the operating theatre and placed supine on the operating table. Appropriate cardiorespiratory monitors were applied. General anesthesia was induced. A tourniquet was applied high on the right thigh though not yet inflated. Right lower extremity was sterilely prepped and draped in the usual fashion. Surgical time-out was performed, confirmed with myself, the greeting card editor and circulating nurse. Preoperative antibiotics were given. Examination under anesthesia revealed full passive range of motion of the right knee. No evidence of instability. The leg was elevated and the tourniquet was inflated. A standard inferolateral portal was established. The arthroscope was inserted and the knee was insufflated with saline. Needle localization was utilized to establish an inferomedial portal and diagnostic examination ensued. Synovitis was present in the suprapatellar pouch, medial and lateral gutters. Lateral gutter and suprapatellar pouch showed no loose bodies or debris. The medial gutter was visualized, noting a fragment of medial meniscus extending into the posterior medial gutter. The medial compartment was then entered. There was noted to be diffuse grade 3 and some grade 4 change to the cartilage of the medial femoral condyle and tibial plateau. There was a complex tear of the posterior horn of the medial meniscus. A flap of meniscus was displaced posteriorly into the posterolateral aspect of the joint centrally as well as the aforementioned fragment posteromedially. These were reduced with an arthroscopic probe. A series of leesa and biters were then used to resect the torn meniscus back to a stable meniscal rim. The anterior horn and posterior root were intact. Any loose chondral flaps were debrided from the femoral condyle and tibial plateau. The intercondylar notch was then visualized, noting an intact ACL and PCL. The knee was then moved to a figure-four position as the lateral compartment was entered. There was noted to be tearing of the posterior horn and its junction with the body and the midportion of the body. A series of leesa and biters were used to resect this to a stable rim. Grade 1 and 2 chondromalacia was present in the lateral tibial plateau and lateral femoral condyle. Patellofemoral joint again showed some degenerative change and some mild flaps of cartilage off the patella and the trochlea. These were debrided with a shaver as well. The knee was then copiously lavaged, irrigated and drained. All arthroscopic instruments were removed. Portals were closed with nylon sutures. Marcaine was injected around the portal sites and Marcaine cocktail in the joint. Sterile dressings were applied followed by an Enrrique bandage. The tourniquet was deflated. The patient was awakened from anesthesia and taken to the recovery room in stable and satisfactory condition. BLOSSOM
== END 2016-09-07 13:55 | disposition home or self-care (01) ==
LOC: NSC 08:46
PROVIDERS: ATTEND Orthopaedic Surgery
DX: S83.231A Complex tear of medial meniscus, current injury, right knee, initial encounter (principal); S83.281A Other tear of lateral meniscus, current injury, right knee, initial encounter; M94.261 Chondromalacia, right knee; I10 Essential (primary) hypertension; E11.9 Type 2 diabetes mellitus without complications; K21.9 Gastro-esophageal reflux disease without esophagitis; E78.5 Hyperlipidemia, unspecified; Z79.84 Long term (current) use of oral hypoglycemic drugs; Z79.899 Other long term (current) drug therapy; Z88.0 Allergy status to penicillin; Z85.828 Personal history of other malignant neoplasm of skin; Z96.652 Presence of left artificial knee joint; X58.XXXA Exposure to other specified factors, initial encounter
CPT/HCPCS: 29880; 36415; 80048; G0289; J1100; J1885; J2175; J2405; J2704; J3010; J7120; S0020